=== PATIENT | female | born 1960 | race Caucasian/White ===

== ENCOUNTER → 2021-10-06 | Outpatient (CLI) | payer OTHER ==
--- NOTE | 2021-10-07 04:15 | RAD ---
EXAM: Bilateral carotid duplex with waveform analysis. CLINICAL HISTORY: HYPERLIPIDEMIA, HTN, HX OF SMOKING . TECHNIQUE: Longitudinal and transverse sonographic images of the bilateral carotid arteries was perfo rmed utilizing grayscale, color and spectral Doppler techniques. COMPARISON: None FINDINGS: Right Carotid: No visible stenosis or significant plaque. Left Carotid: No visible stenosis or significant plaque. Vertebrals: Antegrade flow bilaterally. Right: PSV CCA (cm/s): 85 PSV ICA (cm/s): 124 EDV ICA (cm/s): 36 PSV ECA (cm/s): 106 ICA/CCA Ratio: 1.4 Left: PSV CCA (cm/s): 87 PSV ICA (cm/s): 113 EDV ICA (cm/s): 37 PSV ECA (cm/s): 128 ICA/CCA Ratio: 1.3 IMPRESSION: No significant stenosis. Consensus Panel Burroughs-scale and Doppler US Criteria for Diagnosis of ICA Stenosis Degree of Stenosis (%) ICA PSV (Cm/sec) Plaque Estimate (%)* Normal <125 None <50 <125 <50 50-69 125-230 >50 >70 but < near occlusion >230 >50 Near occlusion High, low, or undetectable Visible Total occlusion Undetectable Visible, no detectable lumen *Plaque estimate (diameter reduction) with burroughs-scale and color Doppler US Degree of Stenosis (%) ICA/CCA PSV Ratio ICA EDV (cm/sec) Normal <2.0 <40 <50 <2.0 <40 50-69 2.0-4.0 40-100 >70 but < near occlusion >4.0 >100 Near occlusion Variable Variable Total occlusion Not applicable Not applicable Electronically signed by: Jaiden Antonio MD (10/07/2021 4:13 AM) [facility]
== END ==
LOC: US 15:57
PROVIDERS: ATTEND Nurse Practitioner Family
DX: E78.5 Hyperlipidemia, unspecified (principal); I10 Essential (primary) hypertension; Z87.891 Personal history of nicotine dependence
CPT/HCPCS: 93880